=== PATIENT | male | born 1975 | race Caucasian/White ===

== ENCOUNTER 2020-09-07 12:17 | Emergency (ER) | payer SELFPAY ==
[~2020-09-07] VITALS: Ht 182.9 cm; Wt 79.4 kg
--- NOTE | 2020-09-07 12:17 | NUR ---
Patient BIB [facility] for pre-booking medical screening exam, transferred to chair Dubois RN evaluating patient.
[2020-09-07 12:20] VITALS: BP 154/99
--- NOTE | 2020-09-07 12:23 | NUR ---
Pt [facility] [place] [employer] for prebook clearance. Pt refusing to speak, unable to obtain information from patient
--- NOTE | 2020-09-07 12:48 | NUR ---
Dr. Avalos is evaluating the patient.
[2020-09-07 12:53] VITALS: BP 154/99
--- NOTE | 2020-09-07 12:54 | NUR ---
PATIENT BIB [place] [employer]. PATIENT EXAMINED BY DR. Avalos. PATIENT MEDICALLY CLEARED AND RELEASED IN CUSTODY IN STABLE CONDITION. ORIGINAL PRE-BOOK FORM GIVEN TO OFFICER Bartholomew.
== END 2020-09-07 12:54 ==
LOC: MED 12:17
DX: Z02.89 Encounter for other administrative examinations (principal)
CPT/HCPCS: 99283